=== PATIENT | male | born 1950 | race Caucasian/White ===

== ENCOUNTER → 2017-08-07 | Outpatient (CLI) | payer MEDICARE ==
[2017-08-07] MEDS: ZOLPIDEM 5 MG TABLET. PO (21:30)
== END | disposition home or self-care (01) ==
LOC: SLPLAB 18:46
DX: G47.33 Obstructive sleep apnea (adult) (pediatric) (principal)
CPT/HCPCS: 95810

== ENCOUNTER 2017-08-19 19:16 | Inpatient (IN) | payer MEDICARE ==
[2017-08-19] MEDS: HEPARIN 25,000UTS/500ML PREMIX 500 ML IV (19:00)
[2017-08-19] MEDS ORDERED: HEPARIN for IV BOLUS 10,000 UNIT/10 ML VIAL. IV (20:15)
[2017-08-19] MEDS ORDERED: DEXTROSE 50% 25 GM / 50ML DISP.SYRIN. IV (20:15)
[2017-08-19 20:27] LABS: UNFRACTIONATED HEPARIN TESTING 0.34 IU/mL (0.30-0.70)
[2017-08-19] MEDS: POTASSIUM CHLORIDE 10 MEQ TABLET.ER. PO (21:22)
[2017-08-19] MEDS: ATORVASTATIN CALCIUM 20 MG TABLET PO (21:22)
[2017-08-19] MEDS: METOPROLOL TART IMMED RELEASE 25 MG TABLET. PO (21:24)
[2017-08-19 21:28] LABS: POC GLUCOSE 298 mg/dL (70-99)
[2017-08-19] MEDS: INSULIN DETEMIR 300 UNITS/3 ML INSULN.PEN. SQ (21:28)
[2017-08-20 02:30] LABS: UNFRACTIONATED HEPARIN TESTING 0.33 IU/mL (0.30-0.70)
[2017-08-20] MEDS: METOPROLOL TART IMMED RELEASE 25 MG TABLET. PO ×2 (06:02→21:32)
[2017-08-20 07:55] LABS: POC GLUCOSE 225 mg/dL (70-99)
[2017-08-20 10:15] LABS: HEMOGLOBIN 16.7 g/dL (13.0-17.5); MEAN CORPUSCULAR HEMOGLOBIN 30 pg (25-35); MEAN CORPUSCULAR HGB CONC 33 g/dL (31-37); MEAN CORPUSCULAR VOLUME 88 fL (79-100); PLATELET COUNT 190 x10^3/uL (140-400); RED BLOOD COUNT 5.65 x10^6/uL (4.30-5.70); RED CELL DISTRIBUTION WIDTH 13.1 % (11.5-14.5)
[2017-08-20] MEDS ORDERED: LIDOCAINE 2% 20 ML VIAL. (10:20)
[2017-08-20] MEDS ORDERED: IOHEXOL 300 MG/ML 100ML VIAL. (10:20)
[2017-08-20 10:27] LABS: ANION GAP 10 (6-14); BLOOD UREA NITROGEN 17 mg/dL (8-26); CALCIUM 9.1 mg/dL (8.5-10.1); CARBON DIOXIDE 29 mmol/L (21-32); CHLORIDE 99 mmol/L (98-107); CREATININE 1.1 mg/dL (0.7-1.3); GFR 66.4; GLUCOSE 217 mg/dL (70-99); SODIUM 138 mmol/L (136-145)
[2017-08-20 10:28] LABS: MAGNESIUM 1.2 mg/dL (1.8-2.4)
[2017-08-20] MEDS ORDERED: MIDAZOLAM HCL/PF 2 MG/2 ML VIAL. (11:30)
[2017-08-20] MEDS ORDERED: fentaNYL PF VIAL 100 MCG/2 ML VIAL (11:30)
[2017-08-20] MEDS ORDERED: VERAPAMIL 5 MG/2 ML VIAL. (11:38)
[2017-08-20] MEDS ORDERED: NITROGLYCERIN 200 MCG/2 ML SYRINGE FOR CATH/VASC LAB. (11:38)
[2017-08-20] MEDS ORDERED: HEPARIN for IV BOLUS 10,000 UNIT/10 ML VIAL. (11:38)
[2017-08-20] MEDS: IOHEXOL 300 MG/ML 100ML VIAL. IART (11:45)
[2017-08-20] MEDS: LIDOCAINE WITH 8.4% SOD BICARB 3 ML DISP.SYRIN. IJ (11:45)
[2017-08-20] MEDS ORDERED: CONTRAST GIVEN MC (12:00)
[2017-08-20] MEDS: NITROGLYCERIN 200 MCG/2 ML SYRINGE FOR CATH/VASC LAB. IART (12:12)
[2017-08-20] MEDS: HEPARIN for IV BOLUS 10,000 UNIT/10 ML VIAL. IART (12:12)
[2017-08-20] MEDS: VERAPAMIL 5 MG/2 ML VIAL. IART (12:13)
[2017-08-20] MEDS: MIDAZOLAM HCL/PF 2 MG/2 ML VIAL. IV (12:13)
[2017-08-20] MEDS: fentaNYL PF VIAL 100 MCG/2 ML VIAL IV (12:14)
[2017-08-20 12:26] LABS: POC GLUCOSE 204 mg/dL (70-99)
[2017-08-20] MEDS: ASPIRIN ENTERIC COATED 81 MG TABLET.DR. PO (13:12)
[2017-08-20] MEDS: LISINOPRIL 40 MG TABLET. PO (13:13)
[2017-08-20] MEDS: POTASSIUM CHLORIDE 10 MEQ TABLET.ER. PO ×2 (13:13→16:07)
[2017-08-20] MEDS: PANTOPRAZOLE 40 MG TABLET.DR. PO (13:13)
[2017-08-20] MEDS: LINAGLIPTIN 5 MG TABLET PO (13:13)
[2017-08-20] MEDS: EZETIMIBE 10 MG TABLET. PO (13:13)
[2017-08-20] MEDS: MAGNESIUM SULFATE 4GM 100 ML IV (13:14)
[2017-08-20] MEDS: FUROSEMIDE 20 MG TABLET PO (13:14)
[2017-08-20] MEDS: ACETAMINOPHEN 325 MG TABLET. PO (16:07)
[2017-08-20 17:38] LABS: POC GLUCOSE 363 mg/dL (70-99)
[2017-08-20] MEDS: LORazepam 0.5 MG TABLET PO (20:24)
[2017-08-20 20:59] LABS: POC GLUCOSE 558 mg/dL (70-99)
[2017-08-20] MEDS: ATORVASTATIN CALCIUM 20 MG TABLET PO (21:32)
[2017-08-20] MEDS: INSULIN DETEMIR 300 UNITS/3 ML INSULN.PEN. SQ (21:42)
[2017-08-20] MEDS: HYDROcodone/APAP 5/325MG 1 TAB TABLET PO (21:43)
[2017-08-21] MEDS: PANTOPRAZOLE 40 MG TABLET.DR. PO (06:41)
[2017-08-21] MEDS: IV RINGERS,LACTATED 1000ML 1,000 ML IV (06:41)
[2017-08-21] MEDS ORDERED: fentaNYL PF VIAL 100 MCG/2 ML VIAL IV ×2 (07:00)
[2017-08-21] MEDS ORDERED: ONDANSETRON PF 4 MG/2 ML VIAL. IV (07:00)
[2017-08-21] MEDS ORDERED: HYDROmorphone 2 MG/ML VIAL IV (07:00)
[2017-08-21] MEDS ORDERED: LIDOCAINE 1% PF 2 ML VIAL. ID (07:00)
[2017-08-21] MEDS ORDERED: PROCHLORPERAZINE 10 MG/2 ML VIAL. IV (07:00)
[2017-08-21] MEDS ORDERED: MORPHINE SULFATE 2 MG/ML DISP.SYRIN. IV (07:00)
[2017-08-21 08:22] LABS: POC GLUCOSE 326 mg/dL (70-99)
[2017-08-21] MEDS: POTASSIUM CHLORIDE 10 MEQ TABLET.ER. PO ×2 (08:49→17:48)
[2017-08-21] MEDS: EZETIMIBE 10 MG TABLET. PO (08:49)
[2017-08-21] MEDS: LINAGLIPTIN 5 MG TABLET PO (08:49)
[2017-08-21] MEDS: ASPIRIN ENTERIC COATED 81 MG TABLET.DR. PO (08:49)
[2017-08-21] MEDS: FUROSEMIDE 20 MG TABLET PO (08:50)
[2017-08-21] MEDS: ISOSORBIDE MONONITRATE ER 30 MG TAB.ER.24H PO (08:50)
[2017-08-21] MEDS: METOPROLOL TART IMMED RELEASE 25 MG TABLET. PO ×2 (08:51→21:00)
[2017-08-21] MEDS: LISINOPRIL 40 MG TABLET. PO (09:00)
[2017-08-21 11:18] LABS: ANION GAP 10 (6-14); BLOOD UREA NITROGEN 25 mg/dL (8-26); CALCIUM 9.2 mg/dL (8.5-10.1); CARBON DIOXIDE 27 mmol/L (21-32); CHLORIDE 96 mmol/L (98-107); CREATININE 1.3 mg/dL (0.7-1.3); GFR 54.7; GLUCOSE 355 mg/dL (70-99); MAGNESIUM 1.8 mg/dL (1.8-2.4); POTASSIUM 4.1 mmol/L (3.5-5.1); SODIUM 133 mmol/L (136-145)
[2017-08-21 11:29] LABS: POC GLUCOSE 407 mg/dL (70-99)
[2017-08-21] MEDS: INSULIN ASPART 300 UNITS/3 ML INSULN.PEN SQ (17:53)
[2017-08-21 18:26] LABS: POC GLUCOSE 434 mg/dL (70-99)
[2017-08-21 20:33] LABS: POC GLUCOSE 515 mg/dL (70-99)
[2017-08-21] MEDS: LORazepam 0.5 MG TABLET PO (20:52)
[2017-08-21] MEDS: ATORVASTATIN CALCIUM 20 MG TABLET PO (20:52)
[2017-08-21] MEDS: INSULIN DETEMIR 300 UNITS/3 ML INSULN.PEN. SQ (20:56)
[2017-08-22 06:37] LABS: HEMATOCRIT 46.6 % (39.0-53.0); HEMOGLOBIN 16.1 g/dL (13.0-17.5); MEAN CORPUSCULAR HEMOGLOBIN 30 pg (25-35); MEAN CORPUSCULAR HGB CONC 35 g/dL (31-37); MEAN CORPUSCULAR VOLUME 88 fL (79-100); PLATELET COUNT 184 x10^3/uL (140-400); RED BLOOD COUNT 5.32 x10^6/uL (4.30-5.70); RED CELL DISTRIBUTION WIDTH 12.7 % (11.5-14.5); WHITE BLOOD COUNT 7.5 x10^3/uL (4.0-11.0)
[2017-08-22 06:55] LABS: ALBUMIN 3.2 g/dL (3.4-5.0); ALBUMIN/GLOBULIN RATIO 1.1 (1.0-1.7); ALK PHOS 82 U/L (46-116); ALT (SGPT) 26 U/L (16-63); ANION GAP 10 (6-14); AST (SGOT) 18 U/L (15-37); BLOOD UREA NITROGEN 28 mg/dL (8-26); BUN/CREATININE RATIO 23 (6-20); CARBON DIOXIDE 25 mmol/L (21-32); CHLORIDE 98 mmol/L (98-107); CREATININE 1.2 mg/dL (0.7-1.3); GLUCOSE 336 mg/dL (70-99); SODIUM 133 mmol/L (136-145); TOTAL BILIRUBIN 0.6 mg/dL (0.2-1.0); TOTAL PROTEIN 6.2 g/dL (6.4-8.2)
[2017-08-22 08:33] LABS: POC GLUCOSE 291 mg/dL (70-99)
[2017-08-22] MEDS: PANTOPRAZOLE 40 MG TABLET.DR. PO (09:40)
[2017-08-22] MEDS: ASPIRIN ENTERIC COATED 81 MG TABLET.DR. PO (09:40)
[2017-08-22] MEDS: ISOSORBIDE MONONITRATE ER 30 MG TAB.ER.24H PO (09:40)
[2017-08-22] MEDS: LINAGLIPTIN 5 MG TABLET PO (09:41)
[2017-08-22] MEDS: EZETIMIBE 10 MG TABLET. PO (09:41)
[2017-08-22] MEDS: POTASSIUM CHLORIDE 10 MEQ TABLET.ER. PO (09:41)
[2017-08-22] MEDS: FUROSEMIDE 20 MG TABLET PO (09:41)
[2017-08-22] MEDS: METOPROLOL TART IMMED RELEASE 25 MG TABLET. PO (09:42)
[2017-08-22] MEDS: INSULIN DETEMIR 300 UNITS/3 ML INSULN.PEN. SQ (09:44)
[2017-08-22] MEDS: INSULIN ASPART 300 UNITS/3 ML INSULN.PEN SQ (09:45)
[2017-08-23 03:22] LABS: HEMOGLOBIN A1C 10.1 % (4.8-5.6)
== END 2017-08-22 11:15 | disposition home or self-care (01) | DRG 286 ==
LOC: 2 NORTH 19:16
PROVIDERS: Internal Medicine
PROC: B2111ZZ Fluoroscopy of Multiple Coronary Arteries using Low Osmolar Contrast (ICD-10-PCS; principal; 2017-08-20)
PROC: B2151ZZ Fluoroscopy of Left Heart using Low Osmolar Contrast (ICD-10-PCS; 2017-08-20)
PROC: 4A023N7 Measurement of Cardiac Sampling and Pressure, Left Heart, Percutaneous Approach (ICD-10-PCS; 2017-08-20)
DX: I25.119 Atherosclerotic heart disease of native coronary artery with unspecified angina pectoris (principal); I50.23 Acute on chronic systolic (congestive) heart failure; E11.65 Type 2 diabetes mellitus with hyperglycemia; E66.01 Morbid (severe) obesity due to excess calories; I48.91 Unspecified atrial fibrillation; I11.0 Hypertensive heart disease with heart failure; E78.5 Hyperlipidemia, unspecified; I25.5 Ischemic cardiomyopathy; Z95.1 Presence of aortocoronary bypass graft; M19.90 Unspecified osteoarthritis, unspecified site
CPT/HCPCS: 36415; 80048; 80053; 82962; 83036; 83735; 85027; 85520; 93458; 93880; 93970; 99152; 99153; C1769; C1892; J1644; J1815; J2250; J3010; J3475; J3490; Q9967

== ENCOUNTER → 2017-09-27 | Outpatient (CLI) | payer MEDICARE ==
[~2017-09-27] MED LIST: CONTRAST GIVEN MC
[2017-09-27] MEDS: IOHEXOL 300 MG/ML 100ML VIAL. IV (12:18)
[2017-09-27] MEDS: IOHEXOL 240 MG/ML 50ML VIAL. PO (12:18)
== END | disposition home or self-care (01) ==
LOC: CT 10:50
DX: K80.20 Calculus of gallbladder without cholecystitis without obstruction (principal); K42.9 Umbilical hernia without obstruction or gangrene; J90 Pleural effusion, not elsewhere classified
CPT/HCPCS: 71046; 74177; Q9966; Q9967

== ENCOUNTER → 2018-11-04 | Outpatient (CLI) | payer MEDICARE ==
[~2018-11-04] MED LIST changes: +AMIO200T4 PO; +AMLO10TA8 PO; +ASPI-630 PO; +ASPI325T11 PO; +ATOR10TA PO; +ATOR40TA59 PO; +CARV6.2511 PO; -CONTRAST GIVEN MC; +CYAN10005 PO; +CYCL10TA2 PO; +EZET10TA18 PO; +EZET1TAB35 PO; +FURO-68 PO; +FURO20TA3 PO; +GLIP10TA13 PO; +HYDR-2761 PO; +INSU100V13 SQ; +ISOS30TA4 PO; +LISI-130 PO; +LORA0.5T PO; +METO25TA4 PO; +NAPR-514 PO; +OXYC1TAB15 PO; +POTA10TA12 PO; +RANI150C PO; +SITA1TAB7 PO; +ZOLPIDEM 5 MG TABLET. PO ONE; +[UNRECOGNIZED DRUG - OTHER] PO
--- NOTE | 2018-11-05 16:40 | SLEEP ---
DATE OF STUDY: 11/04/2018 ATTENDING PHYSICIAN: Dr. Calzada. The patient is a 68-year-old who weighs 190 pounds with a BMI of 37. The patient's Vinton score was 10. The patient had a previous sleep study and was positive for mild STEPHON and was referred back for another split night study. During the night study, the patient spent 400 minutes in bed and slept for 268 minutes with a sleep efficiency of 67%. Sleep latency was 19 minutes with a REM latency of 312 minutes. Overall, sleep architecture showed increased stage 1 and stage 2 sleep, normal N3 sleep and reduced REM sleep. During the initial diagnostic portion of the study, the patient slept for 88 minutes. During that time, there were 7 obstructive apneas, 9 mixed apneas, no central apneas and 31 hypopneas. The patient's apnea hypopnea index was 32 per hour with a supine index of 47 per hour. REM sleep was not seen during the diagnostic portion. EKG monitoring revealed irregular rhythm, appeared to be paced. It was atrial fibrillation. Average heart rate 81 beats per minute. Nocturnal oximetry study revealed a mean oxygen saturation of 95% with the lowest of 82%. 31% of time oxygen saturation remained between 80% and 89%. PLMs were seen at index of 65 per hour and 3 per hour caused EEG arousals. The patient met the criteria for CPAP initiation. He was started at 7 cm water and titrated up to 11 cm water. At the final pressure, the patient slept for 69 minutes. The patient had supine sleep throughout as well as REM sleep observed. The patient's AHI was reduced to 2 per hour and oxygen saturation remained above 89%. The patient used medium size nasal mask. IMPRESSION: 1. Severe sleep apnea-hypopnea syndrome at an apnea hypopnea index of 32 per hour. 2. Nocturnal hypoxia secondary to obstructive sleep apnea, but resolved with CPAP. 3. Abnormal EKG consistent with atrial fibrillation. 4. Severe periodic limb movements. RECOMMENDATIONS: 1. CPAP at 11 cm water completely eliminated the patient's sleep apnea and should be used on a nightly basis. 2. Follow up in 4-6 weeks to assess compliance with CPAP and to document clinical improvement. 3. Weight loss is strongly advised. 4. Avoid LOG SNAKER depressants. 5. Caution regarding driving until symptoms of sleep apnea resolve with the use of CPAP. 6. The patient should also be further evaluated for symptoms of restless legs during the day and if present, it can be treated with dopaminergic agonist agents. 7. f/u with cardiology regarding A-Fib [place] MD DR: WILMAN/miguel JOB#: [id number] / [id number] [facility] MIGUEL CALZADA MD MTDD
== END | disposition home or self-care (01) ==
LOC: MERGE 19:17 → SLPLAB 19:17
PROVIDERS: ATTEND Specialist
DX: G47.30 Sleep apnea, unspecified (principal); R09.02 Hypoxemia
CPT/HCPCS: 95810